=== PATIENT | female | born 1980 | race Caucasian/White ===

== ENCOUNTER 2018-09-28 23:36 | Emergency (ER) | payer BC ==
[2018-09-29] MEDS: FAMOTIDINE 20 MG INJ IV
[2018-09-29] MEDS: DIPHENHYDRAMINE 50 MG INJ IV
[2018-09-29] MEDS: EPINEPHrine 1 MG INJ IM (00:01)
[2018-09-29] MEDS: METHYLPREDNISOLONE 125 MG INJ IV (00:01)
[2018-09-29] MEDS: IPRATROPIUM (NEB) 0.5 MG/2.5 ML AMP INH (00:40)
[2018-09-29] MEDS: ALBUTEROL 0.083% (NEB) 2.5 MG/3 ML AMP INH (00:40)
[2018-09-29] MEDS ORDERED: FAMOTIDINE 20 MG INJ IV (01:00)
[2018-09-29] MEDS ORDERED: DIPHENHYDRAMINE 50 MG INJ IV (01:00)
[2018-09-29] MEDS ORDERED: NACL 0.9% 3 ML SYG IV (01:00)
[2018-09-29] MEDS ORDERED: ONDANSETRON 4 MG INJ IV ×2 (01:00)
[2018-09-29] MEDS ORDERED: ACETAMINOPHEN 325 MG TAB PO (01:00)
[2018-09-29] MEDS ORDERED: ALBUTEROL 0.083% (NEB) 2.5 MG/3 ML AMP HHN (01:00)
[2018-09-29 01:31] LABS: HEMATOCRIT 40.5 % (37.0-47.0); HEMOGLOBIN 13.7 g/dl (12.0-16.0); MEAN CORPUSCULAR HEMOGLOBIN 30.7 pg (29.0-33.0); MEAN CORPUSCULAR HGB CONC 33.8 g/dl (32.0-37.0); MEAN CORPUSCULAR VOLUME 90.8 fl (82.0-101.0); MEAN PLATELET VOLUME 9.6 fl (7.4-10.4); PLATELET COUNT 340 10^3/UL (140-415); RED BLOOD COUNT 4.46 10^6/ul (4.20-5.40); RED CELL DISTRIBUTION WIDTH 12.2 % (11.5-14.5)
[2018-09-29 01:31] LABS: WHITE BLOOD COUNT 9.7 10^3/ul (4.8-10.8)
[2018-09-29 01:40] LABS: POSITIVE DIFF @See below
[2018-09-29 01:42] LABS: ADD MAN DIFF? YES
[2018-09-29 01:50] LABS: ANION GAP 9 (5-13); BLOOD UREA NITROGEN 11 mg/dl (7-20); CARBON DIOXIDE 27 mmol/L (21-31); CHLORIDE 101 mmol/L (97-110); CREATININE 0.83 mg/dl (0.44-1.00); Estimated GFR > 60 mL/min (>60); GLUCOSE 137 mg/dl (70-220); POTASSIUM 4.4 mmol/L (3.5-5.1); SODIUM 137 mmol/L (135-144)
[2018-09-29 06:48] LABS: ANISOCYTOSIS 1+ (0-0); BASOPHILS % (M) 1 % (0-2); EOSINOPHILS % (M) 2 % (0-7); LYMPHOCYTES #M 1.5 10^3/ul (0.8-2.9); LYMPHOCYTES % (M) 16 % (15-51); MONOCYTE #M 0.5 10^3/ul (0.3-0.9); MONOCYTES % (M) 6 % (0-11); PLATELET ESTIMATE NORMAL; POLYCHROMASIA 1+ (0-0); SEGMENTED NEUTROPHILS (M) % 75 % (39-77); SMUDGE%M 4 % (0-0)
[2018-09-29] MEDS: SOD CHLORIDE 0.9% 500 ML IV (08:09)
[2018-09-29] MEDS: METHYLPREDNISOLONE 40 MG INJ IV (08:09)
[2018-09-29] MEDS: ACETAMINOPHEN 325 MG TAB PO (08:18)
== END 2018-09-29 12:16 | disposition home or self-care (01) ==
LOC: E/R 23:36
DX: T78.2XXD Anaphylactic shock, unspecified, subsequent encounter (principal); R06.02 Shortness of breath
CPT/HCPCS: 71045; 80048; 81025; 85025; 94664; 96372; 96374; 96375; 99291-25